=== PATIENT | female | born 1990 | race American Indian/Alaskan Native ===

== ENCOUNTER 2017-05-27 18:20 | Emergency (ER) | payer OTHER ==
[2017-05-27 19:11] VITALS: BP 121/83; PULSE 78; RESP 18; TEMP 98; O2SAT 99
--- NOTE | 2017-05-27 19:50 | ED PDOC ---
Lower Extremity Pain/Injury Time Seen by Provider: 05/27/17 19:03 Chief Complaint (Nursing): Lower Extremity Problem/Injury Chief Complaint (Provider): Left knee pain History Per: Patient History/Exam Limitations: no limitations Onset/Duration Of Symptoms: Mins Current Symptoms Are (Timing): Still Present Additional History Per: Patient Additional Complaint(s): 27 year old with history of diabetes currently on Metformin, presents to ER for evaluation of left knee pain after she tripped and fell on a cobblestone path. Patient denies any weakness, numbness, or tingling. She also denies any head injuries or loss of consciousness due to fall. Patients offers no other medical complaints. - Knee Description Of Injury: Fell Past Medical History Reviewed: Historical Data, Nursing Documentation, Vital Signs Vital Signs: Last Vital Signs Temp 98.0 F 05/27/17 19:08 Pulse 78 05/27/17 19:08 Resp 18 05/27/17 19:08 BP 121/83 05/27/17 19:08 Pulse Ox 99 05/27/17 19:08 - Medical History PMH: Diabetes - Family History Family History: States: Unknown Family Hx - Social History Drugs: Cannabis - Home Medications Home Medications: Ambulatory Orders Medication Instructions Recorded oxyCODONE/Acetaminophen [Percocet 1 ea PO Q6H PRN #5 tab 05/27/17 5/325 mg Tab] - Allergies Allergies/Adverse Reactions: Allergies Allergy/AdvReac Type Severity Reaction Status Date / Time No Known Allergies Allergy Verified 05/27/17 19:08 Review of Systems ROS Statement: Except As Marked, All Systems Reviewed And Found Negative Musculoskeletal: Positive for: Leg Pain (left knee) Neurological: Negative for: Weakness, Numbness, Other (head injury, loss of consciousness) Physical Exam - Reviewed Nursing Documentation Reviewed: Yes Vital Signs Reviewed: Yes - Physical Exam Appears: Positive for: Non-toxic, No Acute Distress Head Exam: Positive for: ATRAUMATIC, NORMAL INSPECTION, NORMOCEPHALIC Skin: Positive for: Normal Color, Warm, DRY Cardiovascular/Chest: Positive for: Regular Rate, Rhythm Pulses-Dorsalis Pedis (L): 2+ Pulses-Dorsalis Pedis (R): 2+ Extremity: Positive for: Normal ROM (patient able to ambulate but with pain; patient able to extend left knee to 180 degrees but with mild discomfort), Other (abrasion noted to anterior surface of left knee). Negative for: Deformity, Swelling Neurologic/Psych: Positive for: Alert, Oriented. Negative for: Motor/Sensory Deficits - ECG O2 Sat by Pulse Oximetry: 99 (RA) Pulse Ox Interpretation: Normal Medical Decision Making Medical Decision Making: Impression: Left knee injury status post fall Plan: --X-Ray left knee --Percocet 1 tab PO Scribe Attestation: Documented by Shira Paulino, acting as a scribe for uLly Harmon PA-C Provider Scribe Attestation: All medical record entries made by the Scribe were at my direction and personally dictated by me. I have reviewed the chart and agree that the record accurately reflects my personal performance of the history, physical exam, medical decision making, and the department course for this patient. I have also personally directed, reviewed, and agree with the discharge instructions and disposition. Disposition - Clinical Impression Clinical Impression: Knee contusion, Knee abrasion - Patient ED Disposition Is Patient to be Admitted: No - Disposition Disposition: Routine/Home Disposition Time: 20:45 Condition: GOOD Prescriptions: oxyCODONE/Acetaminophen [Percocet 5/325 mg Tab] 1 ea PO Q6H PRN #5 tab PRN Reason: Pain, Severe (8-10) Instructions: Skin Abrasions, Contusion (DC) Forms: [employer] ([place])
[2017-05-27] MEDS ORDERED: Oxycodone/Acetaminophen 5/325 mg Tab PO STA (19:53)
[2017-05-27] MEDS ORDERED: Oxycodone/Acetaminophen 5/325 mg Tab ONE (20:35)
--- NOTE | 2017-05-28 12:36 | RAD ---
PROCEDURE: Left Knee Radiographs. HISTORY: Pain. COMPARISON: None. FINDINGS: BONES: No acute fracture or destructive bony lesion identified, including the patella (marked by the technologist as site of left knee pain). JOINTS: Normal. No osteoarthritis. JOINT EFFUSION: Trace suprapatellar bursa effusion. OTHER FINDINGS: None. IMPRESSION: Trace suprapatellar bursa effusion. No acute fracture dislocation of the left knee including the patella.
== END 2017-05-27 23:58 | disposition home or self-care (01) ==
LOC: H.ER 18:20
DX: S80.02XA Contusion of left knee, initial encounter (principal); W19.XXXA Unspecified fall, initial encounter; Y92.89 Other specified places as the place of occurrence of the external cause